=== PATIENT | female | born 1990 | race African-American/Black ===

== ENCOUNTER 2021-02-01 17:06 | Emergency (ER) | payer OTHER ==
[~2021-02-01] VITALS: Ht 157.5 cm; Wt 58.0 kg
[2021-02-01 17:17] VITALS: BP 122/85
[2021-02-01] MEDS ORDERED: IBUPROFEN 600MG TABLET PO ONE (17:30)
[2021-02-01] MEDS ORDERED: IBUP-1523 PO (17:35)
[2021-02-01] MEDS ORDERED: CEPH500C2 MT (17:42)
[2021-02-01] MEDS ORDERED: TOBRAD LEFTEYE (17:42)
[2021-02-01] MEDS ORDERED: CEPHALEXIN 250MG CAPSULE PO ONE (17:45)
== END 2021-02-01 18:00 | disposition home or self-care (01) ==
LOC: ER 17:06
DX: L03.213 Periorbital cellulitis (principal); H00.016 Hordeolum externum left eye, unspecified eyelid; F12.10 Cannabis abuse, uncomplicated
CPT/HCPCS: 99283